=== PATIENT | male | born 1960 | race Caucasian/White ===

== ENCOUNTER 2017-01-14 19:19 | Observation (INO) | payer BC ==
[~2017-01-14] VITALS: Ht 185.4 cm; Wt 161.5 kg
[~2017-01-14 19:19] MED LIST: ASPIRIN325 MG PO; FLEXERIL10 MG PO; MAGNESIUM250 MG PO; METOPROLOL SUCC25 MG PO; OMEPRAZOLE40 M1 PO; POTASSIUM-9999 MG PO; VICODIN 5-3001 EACH PO; ZOCOR40 MG PO
[2017-01-14 20:04] LABS: MCH 31.2 PG (29.0-34.0); MCHC 32.9 G/DL (30.0-36.0); MCV 94.7 FL (86-99); MEAN PLAT.VOLUME 10.7 uM^3 (9.0-12.4); PLATELET COUNT 252 K/uL (156-360); RED BLOOD COUNT 5.07 M/uL (4.00-5.50); WHITE BLOOD COUNT 13.9 K/uL (4.1-10.2)
[2017-01-14 20:17] LABS: CHLORIDE 102 mEq/L (99-109); POTASSIUM 4.6 mEq/L (3.7-5.4); SODIUM 136 mEq/L (136-147)
[2017-01-14 20:19] LABS: GLUCOSE 223 mg/dL (70-99)
[2017-01-14 20:20] LABS: ANION GAP 11 MEQ/L (2-14)
[2017-01-14 20:23] LABS: GFR ESTIMATE (CALCULATED) 45 mL/min/
[2017-01-14 20:24] LABS: UREA NITROGEN (BUN) 20 mg/dL (9-23)
[2017-01-14 20:28] LABS: TROP-I INTERPRETATION NEGATIVE; TROPONIN-I < 0.01 ng/mL (0.0-0.30)
[2017-01-14 21:35] LABS: MAGNESIUM 1.7 mg/dL (1.3-2.7)
[2017-01-14 22:58] LABS: ADD MIUA? YES; BILIRUBIN NEGATIVE; BLOOD NEGATIVE; COLOR YELLOW ((YELLOW)); GLUCOSE (STRIP) 150; KETONES NEGATIVE; LEUKOCYTES NEGATIVE; NITRITE NEGATIVE; PROTEIN (STRIP) NEGATIVE; SPECIFIC GRAVITY 1.009 (1.000-1.030); UROBILINOGEN 0.2 MG/DL (0.2-1.0)
[2017-01-14 23:09] LABS: BACTERIA RARE /HPF; EPITHELIAL CELLS RARE /HPF; GRANULAR CASTS 0-5 /LPF; MUCUS 1+ /LPF; RED BLOOD CELLS 0-5 /HPF (0-5); UCUL ADDED? NO; WHITE BLOOD CELLS 0-5 /HPF (0-5)
[2017-01-15] VITALS (7 sets, daily range): BP systolic 121–139; BP diastolic 65–75
[2017-01-15] MEDS ORDERED: METOPROLOL SUCC50 MG PO (00:12)
[2017-01-15] MEDS ORDERED: SIMVASTATIN40 MG PO (00:12)
[2017-01-15] MEDS ORDERED: TAMSULOSIN HCL0.4 MG PO (00:13)
[2017-01-15] MEDS ORDERED: LISINOPRIL10 MG PO (00:13)
[2017-01-15] MEDS ORDERED: SERTRALINE HCL100 MG PO (00:13)
[2017-01-15 13:09] LABS: Estimated Average Glucose 235 mg/dL (70-123); HEMOGLOBIN A1c (GLYCOHEMOGLOB) 9.8 % HGB (Below 5.7)
[2017-01-15 15:14] LABS: POINT-OF-CARE METER ID UU14162513
[2017-01-15 18:03] LABS: POINT-OF-CARE METER ID UU14162513
[2017-01-15 21:46] LABS: POINT-OF-CARE METER ID UU14162513
[2017-01-16 00:07] VITALS: BP 119/97
[2017-01-16 04:40] VITALS: BP 135/86
[2017-01-16 08:32] LABS: POINT-OF-CARE METER ID UU13113831
[2017-01-16 08:40] VITALS: BP 132/89
[2017-01-16 12:00] VITALS: BP 134/76
[2017-01-16 13:19] LABS: POINT-OF-CARE METER ID UU14162513
[2017-01-16 13:45] LABS: ALKALINE PHOSPHATASE 63 IU/L (3-129); ANION GAP 9 MEQ/L (2-14); CHLORIDE 102 MEQ/L (99-109); DIRECT BILIRUBIN 0.1 mg/dL (0.0-0.3); GLUCOSE 121 mg/dL (70-99); POTASSIUM 4.6 MEQ/L (3.7-5.4); SAMPLE HEMOLYSIS CHECK 0; SAMPLE ICTERIC CHECK 0; SAMPLE LIPEMIA CHECK 0; SODIUM 139 MEQ/L (136-147); TOTAL BILIRUBIN 0.6 MG/DL (0.0-1.0); UREA NITROGEN (BUN) 13 mg/dL (9-23)
[2017-01-16 13:47] LABS: GFR ESTIMATE (CALCULATED) > 59 mL/min/
[2017-01-16 13:49] LABS: EOSINOPHIL (%) 1.5 % (0-5); EOSINOPHIL COUNT 0.1 K/uL (0-0.3); IMMATURE GRANULOCYTE (%) 0.6 % (0.0-0.7); IMMATURE GRANULOCYTE COUNT 0.1 K/uL; INSTRUMENT ABS NEUTROPHIL CT 5.3 K/uL; LYMPHOCYTE COUNT 2.1 K/uL (1.0-2.8); MCH 31.6 PG (29.0-34.0); MCHC 33.1 G/DL (30.0-36.0); MCV 95.4 FL (86-99); MEAN PLAT.VOLUME 11.1 uM^3 (9.0-12.4); MONOCYTE (%) 9.6 % (3-12); MONOCYTE COUNT 0.8 K/uL (0-0.8); NEUTROPHIL (%) 62.4 % (45-76); NEUTROPHIL COUNT 5.3 K/uL (1.8-6.4); PLATELET COUNT 251 K/uL (156-360); RBC DIS.WIDTH-SD 48.9 % (39-53); RED BLOOD COUNT 5.03 M/uL (4.00-5.50); WHITE BLOOD COUNT 8.4 K/uL (4.1-10.2)
[2017-01-16] MEDS ORDERED: GLUCOMETER MC ×2 (13:52→16:25)
[2017-01-16] MEDS ORDERED: METFORMIN HCL500 MG PO ×2 (13:52→16:25)
[2017-01-16] MEDS ORDERED: ONE TOUCH ULTR1 EAC4 MC ×2 (13:53→16:37)
[2017-01-16] MEDS ORDERED: ONE TOUCH LANC1 EACH MC ×2 (13:54→16:25)
[2017-01-16] MEDS ORDERED: PRAVASTATIN SOD80 MG PO (16:25)
== END 2017-01-16 16:50 | disposition home or self-care (01) ==
LOC: EME 19:19 → 5WEST 01-15 02:40 → EDOF 01-15 02:40 → 5WEST 01-15 04:05
PROVIDERS: Emergency Medicine; Hospitalist
DX: N17.9 Acute kidney failure, unspecified (principal); I95.1 Orthostatic hypotension; E86.0 Dehydration; E11.9 Type 2 diabetes mellitus without complications; I10 Essential (primary) hypertension; E78.5 Hyperlipidemia, unspecified; I25.10 Atherosclerotic heart disease of native coronary artery without angina pectoris; K21.9 Gastro-esophageal reflux disease without esophagitis; Z87.891 Personal history of nicotine dependence
CPT/HCPCS: 71020; 71250; 74176; 80048; 80048 91; 80076; 81003; 82948; 83036; 83605; 83735; 84100; 84484; 85025; 85025 91; 85027; 87040; 93005; 99281; 99285; G0378; J1650; J1815; J7030